=== PATIENT | male | born 1965 | race Caucasian/White ===

== ENCOUNTER 2021-12-31 17:39 | Emergency (ER) | payer OTHER ==
[~2021-12-31] VITALS: Ht 167.6 cm; Wt 80.0 kg
[2021-12-31] MEDS ORDERED: IBUPROFEN 400MG TABLET PO ONE (21:00)
[2021-12-31 23:25] VITALS: BP 133/75
== END 2021-12-31 23:25 | disposition home or self-care (01) ==
LOC: ER 17:39
DX: S09.8XXA Other specified injuries of head, initial encounter (principal); S00.83XA Contusion of other part of head, initial encounter; E78.00 Pure hypercholesterolemia, unspecified; I10 Essential (primary) hypertension; I25.2 Old myocardial infarction; I25.10 Atherosclerotic heart disease of native coronary artery without angina pectoris; W11.XXXA Fall on and from ladder, initial encounter; Y93.89 Activity, other specified; Y92.9 Unspecified place or not applicable; Z95.820 Peripheral vascular angioplasty status with implants and grafts
CPT/HCPCS: 99284